=== PATIENT | female | born 1970 | race Caucasian/White ===

== ENCOUNTER → 2016-03-28 | Outpatient (CLI) | payer BC ==
[2016-03-28 13:45] VITALS: BP 132/93
== END ==
LOC: MHUC 10:48
PROVIDERS: ATTEND Physician Assistant
DX: B34.2 Coronavirus infection, unspecified (principal)
CPT/HCPCS: 99213

== ENCOUNTER → 2016-03-28 | Outpatient (CLI) | payer BC | LOC: LAB 11:30 | PROVIDERS: ATTEND Physician Assistant | DX: R09.81 Nasal congestion (principal) | CPT/HCPCS: 87486; 87581; 87633; 87798 ==

== ENCOUNTER → 2016-03-30 | Outpatient (CLI) | payer BC | LOC: RAD 10:53 | PROVIDERS: ATTEND Internal Medicine Hematology & Oncology | DX: Z53.9 Procedure and treatment not carried out, unspecified reason (principal) ==

== ENCOUNTER → 2016-05-13 | Outpatient (CLI) | payer BC ==
--- NOTE | 2016-05-13 14:47 | Diagnostic Imaging Report ---
INDICATION: Previous lumpectomy, left breast. COMPARISON: 04/27/2015; and 04/04/2014. The current digital study was evaluated with a Computer Aided Detection (CAD). FINDINGS: Scar is noted with surgical clips and mild distortion of the tissue in the upper outer aspect of the left breast from previous lumpectomy. This is unchanged in appearance over the past two years. No new lesions have developed. No clustered calcifications have developed. No architectural distortion in the right breast. IMPRESSION: 1. Stable-appearing scar in the left breast from previous lumpectomy. 2. Right breast is stable. Routine annual followup recommended. ACR BI-RADS Category 2: Benign findings. Result letter will be mailed to the patient. Note: At least 10% of breast cancer is not imaged by mammography. Dictated by: Dictated on workstation # [id number]
== END ==
LOC: RAD 13:59
PROVIDERS: ATTEND Internal Medicine Hematology & Oncology
DX: C50.912 Malignant neoplasm of unspecified site of left female breast (principal)